=== PATIENT | male | born 1950 | race Caucasian/White ===

== ENCOUNTER 2019-07-04 14:31 | Emergency (ER) | payer MEDICARE ==
[~2019-07-04] VITALS: Ht 167.6 cm; Wt 74.8 kg
--- NOTE | 2019-07-04 14:32 | NUR ---
PT TO ER BED 3
[2019-07-04 14:41] VITALS: BP 145/70
--- NOTE | 2019-07-04 14:50 | NUR ---
ANNA HERNANDEZ EVALUATING PT AT BEDSIDE
--- NOTE | 2019-07-04 14:55 | NUR ---
REFERRED FROM CLINIC FOR HIGH BLOOD SUGAR FSBS 379 ON 07/03/19. WAS NOT STARTED ON ANY MEDICATION AT THE CLINIC. NO BLOOD DRAW. DENIES POLYURIA, POLYDIPSIA. STATES POLYPHAGIA. C/O HEADACHE, DIZZINESS X YESTERDAY. NO DIZZINESS NOW. BLOOD SUGAR 269 AT TRIAGE. PAIN 2/10 MILD FRONTAL HEADACHE NOW. DENIES MED HX. RX- VITAMINS, SUPPLEMENTS
--- NOTE | 2019-07-04 15:43 | NUR ---
MEDICAL BILLER CODER @ BEDSIDE FOR BLOOD DRAW
[2019-07-04 16:13] LABS: BASOPHILS % (AUTO) 0.3 % (0.0-2.0); EOSINOPHILS # (AUTO) 0.2 K/uL (0-0.4); EOSINOPHILS % (AUTO) 2.7 % (0.0-4.0); HEMATOCRIT 47.2 % (36-52); HEMOGLOBIN 15.7 g/dL (12.0-18.0); LYMPHOCYTES # (AUTO) 2.5 K/uL (2.0-11.5); LYMPHOCYTES % (AUTO) 33.9 % (20.5-51.1); MEAN CORPUSCULAR HEMOGLOBIN 30 pg (27-31); MEAN CORPUSCULAR HGB CONC 33 g/dL (33-37); MEAN CORPUSCULAR VOLUME 91.2 fL (80-94); MONOCYTES # (AUTO) 0.4 K/uL (0.8-1.0); MONOCYTES % (AUTO) 6.1 % (1.7-9.3); NEUTROPHILS # (AUTO) 4.2 K/uL (1.8-7.7); PLATELET COUNT (AUTO) 174 K/uL (140-450); RED BLOOD CELL COUNT(AUTO) 5.18 MIL/uL (4.20-6.10); RED CELL DISTRIBUTION WIDTH 13.3 % (11.6-13.7); WHITE BLOOD COUNT (AUTO) 7.4 K/uL (4.8-10.8)
[2019-07-04 16:31] LABS: ALBUMIN 4.1 g/dL (3.4-5.0); ANION GAP 13.7 (8-16); CREATININE 1.1 mg/dL (0.6-1.3); POTASSIUM 3.7 mmol/L (3.5-5.1); TOTAL BILIRUBIN 0.7 mg/dL (0.0-1.0)
--- NOTE | 2019-07-04 16:50 | NUR ---
DR HANLEY SPEAKING WITH PT @ BEDSIDE
[2019-07-04 17:23] VITALS: BP 154/73
--- NOTE | 2019-07-04 17:23 | NUR ---
Patient discharged with v/s stable. Written and verbal after care instructions given and explained. Patient alert, oriented and verbalized understanding of instructions. Ambulatory with steady gait. All questions addressed prior to discharge. ID band removed. Patient advised to follow up with PMD. Rx of METFORMIN, ACCUCHECK GLUCOMETER & TEST STRIPS given. Patient educated on indication of medication including possible reaction and side effects. Opportunity to ask questions provided and answered.
== END 2019-07-04 17:32 | disposition home or self-care (01) ==
LOC: MED 14:31
DX: E11.9 Type 2 diabetes mellitus without complications (principal); R42 Dizziness and giddiness
CPT/HCPCS: 36415; 80053; 81002; 83036; 85025; 93005; 99284